=== PATIENT | male | born 1995 | race Asian ===

== ENCOUNTER 2016-07-18 22:25 | Emergency (ER) | payer BC ==
[~2016-07-18] VITALS: Ht 177.8 cm; Wt 70.3 kg
[2016-07-18 22:25] VITALS: BP 128/92; PULSE 120; RESP 19; TEMP 100.4; O2SAT 95
--- NOTE | 2016-07-18 22:25 | NUR ---
Patient triaged and placed in waiting room. VSS and patient appears in no acute distress at this time. Accompanied by MOTHER, awaiting available bed, and MD notified of need for MSE.
--- NOTE | 2016-07-18 22:26 | NUR ---
Patient to ER bed 1 to gown for evaluation. Side rails up. Report given to LUIS MIGUEL BENJAMIN.
--- NOTE | 2016-07-18 22:27 | NUR ---
DR PHILIPPE AT BEDSIDE FOR EVALUATION
[2016-07-18 23:15] LABS: BASOPHILS % (AUTO) 2.8 % (0.0-2.0); EOSINOPHILS % (AUTO) 0.3 % (0.0-4.0); HEMATOCRIT 47.1 % (36-54); LYMPHOCYTES % (AUTO) 12.5 % (20.5-51.5); MEAN CORPUSCULAR HEMOGLOBIN 29 pg (27-31); MEAN CORPUSCULAR HGB CONC 34 % (32-36); MEAN CORPUSCULAR VOLUME 85 fL (79.0-98.0); MONOCYTES % (AUTO) 9.3 % (1.7-9.3); NEUTROPHILS # (AUTO) 5.2 K/uL (1.8-7.7); NEUTROPHILS % (AUTO) 75.1 % (40.0-70.0); PLATELET COUNT (AUTO) 154 K/uL (130-430); RED BLOOD CELL COUNT(AUTO) 5.56 MIL/uL (4.2-6.2); WHITE BLOOD COUNT (AUTO) 6.9 K/uL (4.8-10.8)
[2016-07-18 23:16] LABS: BASOPHILS # (AUTO) 0.2 K/uL (0.0-0.2); LYMPHOCYTES # (AUTO) 0.9 K/uL (1.0-5.5); MONOCYTES # (AUTO) 0.6 K/uL (0.0-1.0)
[2016-07-18 23:24] LABS: CALCIUM 9.4 mg/dL (8.4-11.0); CREATININE 1.47 mg/dL (0.55-1.30); POTASSIUM 3.5 mmol/L (3.5-5.1)
[2016-07-18 23:29] LABS: ALBUMIN 4.4 g/dL (3.4-4.8); TOTAL BILIRUBIN 0.6 mg/dL (0.0-1.0); TOTAL PROTEIN, SERUM 8.2 g/dL (6.4-8.3)
[2016-07-18 23:50] VITALS: BP 128/75; PULSE 85; RESP 15; TEMP 99.8; O2SAT 100
--- NOTE | 2016-07-18 23:51 | NUR ---
Patient given written and verbal discharge instructions and verbalizes understanding. ER MD discussed with patient the results and treatment provided. Given copies of tests performed in ER. Patient in stable condition. ID arm band removed. 5 Rx of Z-PACK,IBUPROFEN given. Patient educated on pain management and to follow up with PMD. Pain Scale 5/10. Opportunity for questions provided and answered.
== END 2016-07-18 23:50 | disposition home or self-care (01) ==
LOC: SED 22:25
DX: J02.9 Acute pharyngitis, unspecified (principal); Z88.0 Allergy status to penicillin
CPT/HCPCS: 36415; 80053; 85025; 99284